=== PATIENT | male | born 1970 | race Caucasian/White ===

== ENCOUNTER 2023-05-08 08:11 | Outpatient (CLI) | payer MEDICAID, SELFPAY ==
--- NOTE | 2023-05-08 08:15 | MR_ITS ---
[address] [address] Phone:?[phone] Fax:?[phone] Referring Physician Information: Mary Jim [address] [facility] [address] Phone:?[phone] Fax:?[phone] Patient:Timbo Montoya D.O.B:?1970 Sex:?Male Phone:?[phone] [facility] MRN:?[id number] Exam Date:?05/08/2023 EXAM: MRI OF THE LEFT KNEE CLINICAL INFORMATION: The patient is a 52-year-old with left knee pain. Evaluate for meniscal injury. PRIOR SURGERY: The patient has a history of prior left knee surgery, including ACL repair. COMPARISON STUDIES: Comparison is made to prior radiographs dated 05/05/2023. TECHNICAL INFORMATION: Imaging was performed on a high-field, 1.5 Denia MR scanner. Axial proton-density and fat-suppressed T2 imaging of the left knee was performed in addition to sagittal proton-density and fat-suppressed proton- density imaging. Coronal proton-density and coronal STIR imaging was also produced. FINDINGS: Articular/Extraarticular collections: Effusion: Moderate. Popliteal cyst: Moderate, seen on sagittal series 6 image 10 and on axial series 4 image 17. Low signal intensity debris within the popliteal cyst can be seen. Popliteal cyst also extends into the medial head of the gastrocnemius with surrounding soft tissue edema and/or hemorrhage on axial series 4 image 25. Loose bodies: No well-defined intra-articular loose bodies are noted. Subcutaneous and extraarticular soft tissues: Nonspecific subcutaneous soft tissue edema and/or hemorrhage can be seen circumferentially about the left knee. Osseous structures: No evidence for marrow edema or cortical injury. No evidence for fracture or stress injury. No evidence for destructive bony lesion. Ligamentous structures: ACL: The patient is status post ACL graft reconstruction. The ACL graft appears intact. No definite evidence for well-defined cyclops lesion can be seen. PCL: Intact and normal in appearance. MCL: Intact and normal in appearance. LCL: Intact and normal in appearance. Posterolateral corner: Intact and normal in appearance. Posteromedial corner: No posteromedial corner soft tissue injury. Semimembranosus and pes anserine tendons demonstrate no tendinopathy or associated bursitis. Extensor mechanism/Patellar retinacular structures: Patellar tendon: Intact, without tendinopathy. Quadriceps tendon: Intact, without tendinopathy. Retinacula: The medial and lateral retinacula are intact. The medial patellofemoral ligament is intact. Medial compartment: Medial meniscus: The medial meniscus is abnormal in appearance. There is evidence for prior partial medial meniscectomy. Attenuation and irregularity of the middle and posterior portions can be seen with recurrent or residual tearing of the posterior horn noted on sagittal series 5 image 10. The area of recurrent or residual tearing of the posterior horn of the medial meniscus measures 15 mm in mediolateral dimension. No definite evidence for parameniscal cyst formation is identified. Medial femoral condyle: Broad-based changes of grade II to III chondromalacia can be seen along the central and posterior weightbearing surfaces of the medial femoral condyle. Medial tibial plateau: Grade II chondromalacia can be seen along the central and posterior weightbearing surfaces of the medial tibial plateau. Lateral compartment: Lateral meniscus: The lateral meniscus is abnormal in appearance. There is broad-based, predominantly horizontal tearing of the anterior, middle, and posterior one thirds seen on sagittal series 6 image 24 and on coronal series 7 image 20. Extension of the tearing to the meniscal attachment can be seen. No definite evidence for well-defined parameniscal cyst formation is noted. Lateral femoral condyle: Grade III chondromalacia can be seen along the anterior weightbearing surfaces of the lateral femoral condyle. Lateral tibial plateau: Full-thickness and near full-thickness chondral loss can be seen along the posterior weightbearing surfaces of the lateral tibial plateau on sagittal series 6 image 22 and on coronal series 7 image 23. Patellofemoral compartment: Patella: No chondromalacia, chondral defect, or osteochondral abnormality. Trochlea: No chondromalacia, chondral defect, or osteochondral abnormality. Neurovascular: No definite neurovascular abnormalities are seen. CONCLUSION: 1. Status post ACL graft reconstruction. The ACL graft appears intact. 2. Evidence for prior partial medial meniscectomy can be seen. There is recurrent or residual tearing of the posterior horn. 3. Broad-based tearing of the anterior, middle, and posterior portions of the lateral meniscus. 4. 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 5. Moderate knee joint effusion and moderate popliteal cyst. The popliteal cyst extends into the posteromedial aspect of the proximal calf, within the medial head of the gastrocnemius. Surrounding edema and/or hemorrhage is noted. 6. No acute bony injuries are identified. [facility] Electronically signed on 05/08/2023 11:33:00 AM by Ricardo Ford M.D.
== END 2023-05-08 08:12 | disposition home or self-care (01) ==
PROVIDERS: PCP Student in an Organized Health Care Education/Training Program; Visit Provider Physician Assistant Surgical
DX: M25.562 Pain in left knee (principal); S83.282A Other tear of lateral meniscus, current injury, left knee, initial encounter; M94.262 Chondromalacia, left knee; M25.462 Effusion, left knee; Z98.890 Other specified postprocedural states
CPT/HCPCS: 73721